=== PATIENT | male | born 1950 | race Caucasian/White ===

== ENCOUNTER 2024-04-29 12:50 | Emergency (ER) | payer MEDICARE ==
[~2024-04-29] VITALS: Ht 172.7 cm; Wt 70.0 kg
[2024-04-29 12:54] VITALS: O2SAT 90
[2024-04-29 14:09] VITALS: BP 0/0; PULSE 0; RESP 0; O2SAT 90
== END 2024-04-29 13:15 ==
LOC: ER 13:02
DX: I46.9 Cardiac arrest, cause unspecified (principal); Z95.1 Presence of aortocoronary bypass graft; Z79.899 Other long term (current) drug therapy
CPT/HCPCS: 82962; 92950; 94070; 99285